=== PATIENT | male | born 1950 | race Caucasian/White ===

== ENCOUNTER 2016-08-10 12:57 | Outpatient (CLI) | END 2016-08-10 12:58 | disposition home or self-care (01) ==

== ENCOUNTER 2016-12-13 06:21 | Day surgery (SDC) | payer OTHER ==
[2016-12-13] MEDS ORDERED: ceFAZolin 2 GM/50 ML 50 ML IV ONE (06:27)
[2016-12-13] MEDS ORDERED: LACTATED RINGERS 1,000 ML IV ONE ×2 (06:37→10:00)
[2016-12-13] MEDS ORDERED: BUPIVACAINE 0.25% PF 30 ML VIAL SUBQ ONE ×2 (08:52)
[2016-12-13] MEDS ORDERED: ONDANSETRON 4 MG/2 ML VIAL IVP ONE (09:00)
[2016-12-13] MEDS ORDERED: DEXAMETHASONE 4 MG/ML VIAL IVP ONE (09:00)
[2016-12-13] MEDS ORDERED: MIDAZOLAM 2 MG/2 ML VIAL IVP ONE (09:00)
[2016-12-13] MEDS ORDERED: PROPOFOL 200 MG/20 ML VIAL IVP ONE (09:00)
[2016-12-13] MEDS ORDERED: KETOROLAC 30 MG/ML VIAL IVP ONE (09:00)
[2016-12-13] MEDS ORDERED: fentaNYL 100 MCG/2 ML VIAL IVP ONE (09:00)
[2016-12-13] MEDS ORDERED: SUCCINYLCHOLINE 200 MG/10 ML VIAL IVP ONE (09:00)
--- NOTE | 2016-12-13 09:57 | XRAY Report ---
INTRAOPERATIVE LEFT TOES: 12/13/2016 CLINICAL INDICATION: Fusion. FINDINGS: Frontal and lateral views of the left toes demonstrate K-wire fixation spanning the interp halangeal joints of the second and third toes. Seven seconds of fluoroscopy time was provided to Dr. Salas; 2 spot images obtained. IMPRESSION: DOCUMENTATION OF INTRAOPERATIVE IMAGING. JOB #: [id number] EXT JOB #:[id number]
[2016-12-13] MEDS ORDERED: ACETAMINOPHEN 1,000 MG/100 ML 100 ML IV ONE (10:21)
[2016-12-13 10:54] VITALS: BP 125/74
--- NOTE | 2016-12-13 12:22 | XRAY Report ---
C-ARM SERVICES: 12/13/2016 Fluoroscopy time only, no images submitted for interpretation. Fluoroscopy time 0 minutes, 7 seconds. MTDD
--- NOTE | 2017-02-10 01:44 | OPERATIVE REPORT ---
DATE OF SURGERY: 12/13/2016 00:00:00 PREOPERATIVE DIAGNOSIS: Hammertoes, left second and third digits. POSTOPERATIVE DIAGNOSIS: Hammertoes, left second and third digits. PROCEDURE: PIPJ arthroplasty with flexor tendon release of left second and third toe hammertoe deform ities with K-wire fixation. SURGEON: Usman Salas MD. ANESTHESIA: General endotracheal. ASSISTANTS: None. FINDINGS: Same. COMPLICATIONS: None. TOURNIQUET: Left thigh at 275 mmHg x57 minutes. ESTIMATED BLOOD LOSS: Minimal. SPECIMEN REMOVED AND CULTURES: None. CONDITION AT END OF PROCEDURE: Stable. DISPOSITION: PACU, then home. INDICATIONS: This is a 66-year-old male with a longstanding history of hammertoes to the left foot in volving his second and third toes. He knows of no previous injury. 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 We had performed an EMG and nerve conduction studies to look for possibility of tarsal tunnel syndrom e, but this was negative. After discussion with the patient, we elected to proceed with left second a nd third toe hammertoe releases. PROCEDURE IN DETAIL: After consent and identification, the patient was brought to the operating room on the operating litter. He was then transferred to the operating table. After induction of a general endotracheal anesthesia and appropriate monitoring, a tourniquet was placed to the left proximal thi gh. The left lower extremity was then prepped and draped free in the usual sterile fashion for foot s urgery. After an appropriate timeout was conducted, we elevated the left lower extremity to perform gravity e xsanguination. We inflated the tourniquet to 275 mmHg. We then made small stab incisions over the mid dle phalanx of the second and third toes in a transverse fashion with an 11-blade scalpel and release d the fundus flexor tendons. We then made longitudinal incisions over the second and third toes, exposing the proximal interphalan geal joints of both toes. We used a Rongeur to carefully resect the distal end of the proximal phalan x involving the articular surface, taking care to preserve the collateral ligaments on both the media l and lateral side of the digits. With this released, we placed a 0.62 inch K-wire in an antegrade di rection through the middle and distal phalanges, exiting underneath the toenail of the second and thi rd digits. The pins were pulled through until the proximal end was flushed with the proximal portion of the middle phalanx. We then placed the toes in a straight reduced position and advanced the pins a ntegrade into the proximal phalanx to the base of the proximal phalanx. With the toes in a straight p osition, we cut the ends of the K-wires and placed Jurgan's balls on the ends of the K-wires and tigh tened them with the Hex wrench. The wounds were irrigated with sterile saline and closed with a running interlocked 4-0 Nylon suture on the dorsum of both toes. The plantar surface incisions were closed with a single interrupted 4-0 N ylon suture. Xeroform gauze, fluff 4 x 4's, and a bulky foot dressing over-wrapped with an Yousif bandage were then a pplied to the left foot. On completion of the procedure, the tourniquet was deflated without complication. The patient was ext ubated and transferred to the recovery room in good condition, having tolerated the procedures well. JOB #: [id number] EXT JOB #:[id number]
== END 2016-12-13 06:22 | disposition home or self-care (01) ==
LOC: SDS 06:21
PROVIDERS: ATTEND Orthopaedic Surgery
PROC: 0L8W0ZZ Division of Left Foot Tendon, Open Approach (ICD-10-PCS; principal; 2016-12-13 07:30)
DX: M20.42 Other hammer toe(s) (acquired), left foot (principal); E78.5 Hyperlipidemia, unspecified; I10 Essential (primary) hypertension; M19.90 Unspecified osteoarthritis, unspecified site; Z79.82 Long term (current) use of aspirin; Z88.5 Allergy status to narcotic agent
CPT/HCPCS: 28285; 73660; C1713; J0131; J0690; J7120

== ENCOUNTER 2017-07-20 14:05 | Outpatient (CLI) | payer OTHER ==
[2017-07-20 14:17] LABS: ALBUMIN/GLOBULIN RATIO 1.6 (1.0-2.2); BILIRUBIN,TOTAL 1.4 mg/dL (0.2-1.0); BUN - BLOOD UREA NITROGEN 25 mg/dL (6-20); CALCIUM 9.3 mg/dL (8.5-10.3); CARBON DIOXIDE - CO2 27 mmol/L (21-32); CHLORIDE 103 mmol/L (101-111); CHOLESTEROL 238 mg/dL; CREATININE 1.1 mg/dL (0.6-1.2); GFR - MDRD 67 (>89); GLUCOSE 111 mg/dL (70-100); HDL CHOLESTEROL 34 mg/dL; LDL/HDL RATIO 5.2 (<3.6); POTASSIUM 4.1 mmol/L (3.5-5.0); SODIUM 137 mmol/L (135-145); TOTAL PROTEIN 7.2 g/dL (6.7-8.2); TRIGLYCERIDES 133 mg/dL; VLDL CHOLESTEROL 27 mg/dL
== END 2017-07-20 14:06 | disposition home or self-care (01) ==
LOC: LAB.WCP 14:05
PROVIDERS: ATTEND Family Medicine
DX: Z12.5 Encounter for screening for malignant neoplasm of prostate (principal); I10 Essential (primary) hypertension; E78.5 Hyperlipidemia, unspecified
CPT/HCPCS: 36415; 80053; 80061; 84153

== ENCOUNTER 2018-09-12 10:27 | Outpatient (CLI) | payer OTHER ==
[2018-09-12 19:03] LABS: BASOPHILS # (AUTO) 0.1 10^3/uL (0.0-0.1); BASOPHILS % (AUTO) 2.2 %; EOSINOPHILS # (AUTO) 0.2 10^3/uL (0.0-0.7); EOSINOPHILS % (AUTO) 4.7 %; HGB - HEMOGLOBIN 13.8 g/dL (14.0-18.0); LYMPHOCYTES # (AUTO) 1.1 10^3/uL (1.5-3.5); LYMPHOCYTES % (AUTO) 22.8 %; MEAN CORPUSCULAR HEMOGLOBIN 30.9 pg (27.0-31.0); MEAN CORPUSCULAR HGB CONC 33.9 g/dL (32.0-36.0); MEAN CORPUSCULAR VOLUME 91.2 fL (80.0-94.0); MEAN PLATELET VOLUME 8.6 fL (7.4-11.4); MONOCYTES # (AUTO) 0.5 10^3/uL (0.0-1.0); MONOCYTES % (AUTO) 9.4 %; NEUTROPHILS % (AUTO) 60.9 %; PLT - PLATELET COUNT 189 10^3/uL (130-450); RED BLOOD COUNT 4.47 10^6/uL (4.70-6.10); RED CELL DISTRIBUTION WIDTH 14.6 % (12.0-15.0)
[2018-09-12 19:19] LABS: ALBUMIN 4.5 g/dL (3.2-5.5); ALBUMIN/GLOBULIN RATIO 1.6 (1.0-2.2); ALKALINE PHOSPHATASE 58 IU/L (42-121); ALT ALANINE AMINOTRANSFERASE 24 IU/L (10-60); AST ASPARTATE AMINOTRANSFERASE 20 IU/L (10-42); BILIRUBIN,TOTAL 1.3 mg/dL (0.2-1.0); BUN - BLOOD UREA NITROGEN 17 mg/dL (6-20); CALCIUM 9.1 mg/dL (8.5-10.3); CARBON DIOXIDE - CO2 26 mmol/L (21-32); CHLORIDE 104 mmol/L (101-111); CHOL/HDL RATIO 7.5 (<5.0); CHOLESTEROL 239 mg/dL; GFR - MDRD 74 (>89); GLUCOSE 110 mg/dL (70-100); HDL CHOLESTEROL 32 mg/dL; LDL CHOLESTEROL,CALCULATED 186 mg/dL; LDL/HDL RATIO 5.8 (<3.6); SODIUM 137 mmol/L (135-145); TOTAL PROTEIN 7.3 g/dL (6.7-8.2); VLDL CHOLESTEROL 21 mg/dL
== END 2018-09-12 10:28 | disposition home or self-care (01) ==
LOC: LAB.WCP 10:27
PROVIDERS: ATTEND Family Medicine
DX: R73.01 Impaired fasting glucose (principal); I10 Essential (primary) hypertension; R97.20 Elevated prostate specific antigen [PSA]; E78.5 Hyperlipidemia, unspecified; Z12.5 Encounter for screening for malignant neoplasm of prostate
CPT/HCPCS: 36415; 80053; 80061; 83721; 84153; 85025

== ENCOUNTER 2020-07-07 08:00 | Outpatient (CLI) | payer MEDICARE, OTHER ==
[2020-07-07 18:06] LABS: BASOPHILS # (AUTO) 0.1 10^3/uL (0.0-0.1); EOSINOPHILS # (AUTO) 0.1 10^3/uL (0.0-0.7); EOSINOPHILS % (AUTO) 2.7 %; HGB - HEMOGLOBIN 13.7 g/dL (14.0-18.0); LYMPHOCYTES # (AUTO) 1.1 10^3/uL (1.5-3.5); LYMPHOCYTES % (AUTO) 21.3 %; MEAN CORPUSCULAR HEMOGLOBIN 31.1 pg (27.0-31.0); MEAN CORPUSCULAR HGB CONC 33.1 g/dL (32.0-36.0); MEAN CORPUSCULAR VOLUME 94.1 fL (80.0-94.0); MEAN PLATELET VOLUME 10.6 fL (7.4-11.4); MONOCYTES # (AUTO) 0.4 10^3/uL (0.0-1.0); MONOCYTES % (AUTO) 8.2 %; NEUTROPHILS # (AUTO) 3.4 10^3/uL (1.5-6.6); NEUTROPHILS % (AUTO) 66.6 %; PLT - PLATELET COUNT 199 10^3/uL (130-450); RED CELL DISTRIBUTION WIDTH 12.7 % (12.0-15.0); WHITE BLOOD COUNT 5.1 x10^3/uL (4.8-10.8)
[2020-07-07 19:16] LABS: ALBUMIN 4.2 g/dL (3.2-5.5); ALBUMIN/GLOBULIN RATIO 1.5 (1.0-2.2); ALKALINE PHOSPHATASE 57 IU/L (42-121); ALT ALANINE AMINOTRANSFERASE 33 IU/L (10-60); AST ASPARTATE AMINOTRANSFERASE 22 IU/L (10-42); BILIRUBIN,TOTAL 1.5 mg/dL (0.2-1.0); BUN - BLOOD UREA NITROGEN 25 mg/dL (6-20); CALCIUM 9.4 mg/dL (8.5-10.3); CARBON DIOXIDE - CO2 25 mmol/L (21-32); CHLORIDE 106 mmol/L (101-111); CHOL/HDL RATIO 5.4 (<5.0); CHOLESTEROL 177 mg/dL; CREATININE 0.9 mg/dL (0.6-1.2); GLUCOSE 107 mg/dL (70-100); HDL CHOLESTEROL 33 mg/dL; LDL CHOLESTEROL,CALCULATED 129 mg/dL; LDL/HDL RATIO 3.9 (<3.6); SODIUM 141 mmol/L (135-145); VLDL CHOLESTEROL 15 mg/dL
[2020-07-07 20:05] LABS: HEMOGLOBIN A1c% 5.9 % (4.27-6.07)
== END 2020-07-07 08:01 | disposition home or self-care (01) ==
LOC: LAB.WCP 08:00
PROVIDERS: ATTEND Internal Medicine
DX: E78.5 Hyperlipidemia, unspecified (principal); R73.01 Impaired fasting glucose; Z12.5 Encounter for screening for malignant neoplasm of prostate; Z13.29 Encounter for screening for other suspected endocrine disorder; D48.5 Neoplasm of uncertain behavior of skin
CPT/HCPCS: 36415; 80053; 80061; 83036; 84443; 85025; G0103; 83721; 84153

== ENCOUNTER 2021-07-15 07:53 | Outpatient (CLI) | payer MEDICARE ==
[2021-07-15 08:36] LABS: ALBUMIN 4.2 g/dL (3.2-5.5); ALBUMIN/GLOBULIN RATIO 1.5 (1.0-2.2); ALKALINE PHOSPHATASE 66 IU/L (42-121); ALT ALANINE AMINOTRANSFERASE 33 IU/L (10-60); AST ASPARTATE AMINOTRANSFERASE 23 IU/L (10-42); BASOPHILS # (AUTO) 0.1 10^3/uL (0.0-0.1); BILIRUBIN,TOTAL 1.6 mg/dL (0.2-1.0); BUN - BLOOD UREA NITROGEN 23 mg/dL (6-20); CALCIUM 9.1 mg/dL (8.5-10.3); CARBON DIOXIDE - CO2 27 mmol/L (21-32); CHLORIDE 102 mmol/L (101-111); CHOL/HDL RATIO 5.4 (<5.0); CHOLESTEROL 172 mg/dL; EOSINOPHILS # (AUTO) 0.3 10^3/uL (0.0-0.7); EOSINOPHILS % (AUTO) 5.8 %; GFR - MDRD 73 (>89); GLUCOSE 119 mg/dL (70-100); HCT - HEMATOCRIT 39.7 % (42.0-52.0); HDL CHOLESTEROL 32 mg/dL; HGB - HEMOGLOBIN 13.5 g/dL (14.0-18.0); LDL CHOLESTEROL,CALCULATED 123 mg/dL; LDL/HDL RATIO 3.8 (<3.6); LYMPHOCYTES # (AUTO) 1.5 10^3/uL (1.5-3.5); LYMPHOCYTES % (AUTO) 29.1 %; MEAN CORPUSCULAR HEMOGLOBIN 31.5 pg (27.0-31.0); MEAN CORPUSCULAR VOLUME 92.8 fL (80.0-94.0); MEAN PLATELET VOLUME 9.8 fL (7.4-11.4); MONOCYTES # (AUTO) 0.6 10^3/uL (0.0-1.0); MONOCYTES % (AUTO) 11.2 %; NEUTROPHILS # (AUTO) 2.6 10^3/uL (1.5-6.6); NEUTROPHILS % (AUTO) 52.7 %; PLT - PLATELET COUNT 165 10^3/uL (130-450); POTASSIUM 3.8 mmol/L (3.5-5.0); RED BLOOD COUNT 4.28 10^6/uL (4.70-6.10); RED CELL DISTRIBUTION WIDTH 12.7 % (12.0-15.0); SODIUM 138 mmol/L (135-145); TRIGLYCERIDES 85 mg/dL; VLDL CHOLESTEROL 17 mg/dL
[2021-07-15 10:00] LABS: CREATININE,URINE 153.2 mg/dL; MICROALBUM/CREATININE RATIO,UR 6.5 ug/mg (<30.0)
[2021-07-15 12:52] LABS: ESTIMATED AVERAGE GLUCOSE 123 mg/dL (70-100); HEMOGLOBIN A1c% 5.9 % (4.27-6.07)
== END 2021-07-15 07:54 | disposition home or self-care (01) ==
LOC: LAB 07:53
PROVIDERS: ATTEND Internal Medicine
DX: I10 Essential (primary) hypertension (principal); E78.5 Hyperlipidemia, unspecified; R73.01 Impaired fasting glucose; Z12.5 Encounter for screening for malignant neoplasm of prostate
CPT/HCPCS: 36415; 80053; 80061; 82043; 82570; 83036; 83721; 84153; 85025

== ENCOUNTER 2021-07-24 09:37 | Outpatient (CLI) | payer MEDICARE ==
--- NOTE | 2021-07-24 12:07 | XRAY Report ---
PROCEDURE: Chest 2 View X-Ray INDICATIONS: CHEST DISCOMFORT TECHNIQUE: 2 view(s) of the chest. COMPARISON: None. FINDINGS: Surgical changes and devices: None. Lungs and pleura: No pleural effusions or pneumothorax. Oval radiopacity in right upper lung field i s seen and measures approximately 1.8 cm in size. This was not noted on lateral view. No focal infilt rate is seen. Mediastinum: Mildly tortuous thoracic aorta is seen with aortic arch calcifications. Heart size is no rmal. Bones and chest wall: No suspicious bony abnormalities. Soft tissues appear unremarkable. IMPRESSION: 1. No acute cardiopulmonary pathology. 2. Oval opacity in right upper lung field which may represent summation artifact. A pulmonary nodule cannot be entirely excluded. Consider CT of chest for further evaluation. Reviewed by: Bobby Walsh MD on 07/24/2021 12:05 PM [facility] Approved by: Bobby Walsh MD on 07/24/2021 12:05 PM [facility] Station ID: [id number]
== END 2021-07-24 09:38 | disposition home or self-care (01) ==
LOC: DI 09:37
PROVIDERS: ATTEND Internal Medicine
DX: R07.89 Other chest pain (principal)

== ENCOUNTER 2021-08-27 07:03 | Outpatient (CLI) | payer MEDICARE ==
--- NOTE | 2021-08-27 15:36 | CT Report ---
PROCEDURE: CHEST WO INDICATIONS: PULMONARY NODULE RUL TECHNIQUE: Noncontrast 1mm axial images were acquired from the pulmonary apices to the posterior costophrenic an gles. Axial 5 mm soft tissue kernel reconstructions were performed as well as 8 mm axial MIP and cor onal and sagittal 5 mm reformations. For radiation dose reduction, the following was used: automate d exposure control, adjustment of mA and/or kV according to patient size. COMPARISON: X-ray chest 07/24/2021. FINDINGS: Image quality: Excellent. Lungs and pleura: No acute air space opacities. No pleural effusions or pneumothorax. Central and peripheral airways are patent and normal in caliber. Mediastinum: Heart size is mildly prominent. No pericardial effusion. No mediastinal adenopathy by size criteria. Thoracic aorta and central pulmonary arteries are normal in size. Esophagus is roland l in caliber. Mild hiatal hernia. Bones and chest wall: No suspicious bony lesions. No vertebral body compression fractures. No axil jey or supraclavicular adenopathy by size criteria. The thyroid is normal in size and there are no incidental findings. Abdomen: Stones are present within the dependent gallbladder without wall thickening. Visualized upp er abdominal solid organs and bowel loops appear normal in the absence of contrast. IMPRESSION: 1. No mass lesion within the right upper lobe corresponding to x-ray abnormality. Appearance is possi junaid secondary to overlapping osseous structures. CLINICAL RECOMMENDATION STATEMENTS: In patients <35 years with an ITN detected on CT, MRI, or extrathyroidal ultrasound, the Committee re commends further evaluation with dedicated thyroid ultrasound if the nodule is "e1 cm and has no susp icious imaging features, and if the patient has normal life expectancy. In patients "e35 years with an ITN detected on CT, MRI, or extrathyroidal ultrasound, the Committee r ecommends further evaluation with dedicated thyroid ultrasound if the nodule is "e1.5 cm and has no s uspicious imaging features, and if the patient has normal life expectancy. (ACR, 2014) Reviewed by: Emily Navarrete MD on 08/27/2021 3:35 PM PST Approved by: Emily Navarrete MD on 08/27/2021 3:35 PM PST Station ID: [id number]
== END 2021-08-27 07:04 | disposition home or self-care (01) ==
LOC: DI 07:03
PROVIDERS: ATTEND Internal Medicine
DX: R91.1 Solitary pulmonary nodule (principal)

== ENCOUNTER 2021-10-01 10:43 | Outpatient (CLI) | payer MEDICARE ==
--- NOTE | 2021-10-01 18:46 | CARDIAC PROCEDURE NOTE ---
Stress Test Report Service Date: 10/01/21 Ordering Provider: Dr Andry Betancur Indication for Test: Atypical chest pain Cardiac Risk Factors: Male gender, HTN, Hyperlipidemia, Family Hx of heart disease. Type of Stress Test: ETT with Myocardial Perfusion Imaging Procedure: After signing informed consent, the patient underwent a Liu-protocol treadmill stress test with nuclear myocardial perfusion imaging. Resting heart rate: 65 Peak heart rate: 129 (87% predicted maximum heart rate for age) Resting BP: 141/83 Peak BP: 192/90 The patient exercised for 5 minutes and 36 seconds on a Liu-protocol treadmill stress test. He achieved a peak heart rate of 129 (87% p.m. HR) and 7.05 METS. The patient had no chest pain. He had mild to moderate shortness of breath and rated his perceived exertion at 13/20 on the Karina scale at peak. Oxygen saturation was greater than 90% throughout the test during exercise on room air. Resting EKG: NSR alternating with long runs of ectopic atrial rhythm, rate 65-7 0, left atrial enlargement, Right IVCD, early R/S transition, early repolarization. EKG with exercise: He remained in sinus rhythm throughout the duration of his exercise. EKG at peak: Sinus rhythm, U waves are seen, no ischemic ST segment or T wave changes develop. Nuclear imaging was reported separately. Summary: 1) Abnormal resting cardiac rhythm (ectopic atrial rhythm alternates with normal sinus rhythm). 2) No ischemic changes develop on EKG during exercise up to 7 METS on a Liu protocol stress test. 3) Nuclear images were reported separately and showed: A fixed perfusion defect in the anterior septum that resolves on prone imaging, therefore likely artifact. Normal distribution of activity in the LV and RV myocardium with no reversible perfusion defects. Conclusion: 1) Abnormal resting EKG (consider Cor Pulmonale) and abnormal resting heart rhythm 2) No evidence of cardiac ischemia by EKG criteria or nuclear imaging 3) This patient's cardiac risk: Low
--- NOTE | 2021-10-02 10:57 | Nuclear Medicine Report ---
PROCEDURE: Rest and exercise myocardial perfusion SPECT with gated imaging and ejection fraction INDICATIONS: ATYPICAL CHEST DISCOMFORT/ TREADMILL RADIOPHARMACEUTICAL: 12.9 mCi Tc-99m Myoview IV at rest and 38.3 mCi Tc-99m Myoview IV at peak exerc ise. [id number] was performed. TECHNIQUE: Radiopharmaceutical was injected at peak stress test, and also at rest. SPECT images wer e obtained. SPECT myocardial perfusion images were displayed in short axis, horizontal long axis, an d vertical long axis views. Gated images were reviewed using AutoQUANT software. COMPARISON: None available. FINDINGS: Raw data: There is good myocardial labeling by radiotracer. No significant motion artifacts. Lung- to-heart ratio is 0.27 (normal is less than 0.46 for tetrafosmin tracer). Left ventricle function: Gated images demonstrate normal left ventricle wall thickening. No segment al wall motion abnormality. No transient ischemic dilation; TID is 0.88 (normal less than 1.30). Th e left ventricle resting end-diastolic volume is 101 mL. Left ventricle stress ejection fraction is 71%; normal values are above 45%. Myocardial perfusion: There is a small, moderately severe, fixed perfusion defect in the anterior se ptum, which is resolved on prone imaging, likely caused by attenuation artifact. There is otherwise n ormal distribution of activity in the left and right ventricular myocardium. No reversible perfusion defects. IMPRESSION: 1. Probably normal myocardial perfusion images. A small, moderately severe, fixed defect in the anter ior septum is resolved on prone imaging, suggesting attenuation artifact. 2. No reversible perfusion defect to suggest myocardial ischemia. 3. Normal left ventricular volume and systolic function. 4. Please correlate with stress EKG result. PQRS ATTESTATIONS: Measure 322 - Is this imaging test primarily performed on a low-risk surgery patient for preoperative evaluation within 30 days preceding their low-risk non-cardiac surgery? Low-risk surgery is defined as cardiac or myocardial infarction less than 1%, including (but not limited to) endoscopic pr ocedures, superficial procedures, cataract surgery, and excisional breast surgery: Answer: No Measure 323 - Is this imaging test performed primarily for the monitoring of an asymptomatic patient who had percutaneous coronary intervention on the visit date or within 2 years of the visit date? An swer: No Measure 324 - Is this imaging test performed primarily for the initial detection and risk assessment on an asymptomatic, low coronary heart disease patient? Low CHD risk definition = clinicians should consider the maximum number of available patient factors used to estimate risk based on [place] (A TP III criteria), typically age, gender, diabetes, smoking status, and use of blood pressure medicati on, and integrate age appropriate estimates for missing elements, such as LDL or standard blood press ure. Answer: No Reviewed by: Acosta Lane MD on 10/02/2021 10:55 AM PST Approved by: Acosta Lane MD on 10/02/2021 10:55 AM PST Station ID: [id number]
== END 2021-10-01 10:44 | disposition home or self-care (01) ==
LOC: DI 10:43
PROVIDERS: ATTEND Internal Medicine
DX: R07.89 Other chest pain (principal); R94.31 Abnormal electrocardiogram [ECG] [EKG]
CPT/HCPCS: 78452; 93016; 93017; 93018; A9500

== ENCOUNTER 2021-11-02 08:08 | Outpatient (CLI) | payer MEDICARE ==
[2021-11-02 09:00] LABS: ALBUMIN/GLOBULIN RATIO 1.4 (1.0-2.2); ALKALINE PHOSPHATASE 72 IU/L (42-121); ALT ALANINE AMINOTRANSFERASE 40 IU/L (10-60); AST ASPARTATE AMINOTRANSFERASE 23 IU/L (10-42); BILIRUBIN,TOTAL 1.4 mg/dL (0.2-1.0); BUN - BLOOD UREA NITROGEN 21 mg/dL (6-20); CALCIUM 9.2 mg/dL (8.5-10.3); CARBON DIOXIDE - CO2 27 mmol/L (21-32); CHLORIDE 104 mmol/L (101-111); CHOL/HDL RATIO 4.8 (<5.0); CHOLESTEROL 135 mg/dL; GFR - MDRD 73 (>89); GLUCOSE 107 mg/dL (70-100); HDL CHOLESTEROL 28 mg/dL; LDL CHOLESTEROL,CALCULATED 86 mg/dL; LDL/HDL RATIO 3.1 (<3.6); POTASSIUM 4.1 mmol/L (3.5-5.0); SODIUM 140 mmol/L (135-145); TOTAL PROTEIN 6.8 g/dL (6.7-8.2); TRIGLYCERIDES 104 mg/dL; VLDL CHOLESTEROL 21 mg/dL
== END 2021-11-02 08:09 | disposition home or self-care (01) ==
LOC: LAB 08:08
PROVIDERS: ATTEND Internal Medicine
DX: E78.5 Hyperlipidemia, unspecified (principal)
CPT/HCPCS: 36415; 80053; 80061; 83721

== ENCOUNTER 2023-02-07 08:44 | Outpatient (CLI) | payer MEDICARE ==
--- NOTE | 2023-02-07 11:19 | XRAY Report ---
PROCEDURE: Knee 2 View RT INDICATIONS: DJD,KNEE,RIGHT TECHNIQUE: 2 views of the right knee(s) were acquired. COMPARISON: None. FINDINGS: Bones: No fractures or dislocations. No definite or significant medial or lateral compartment joint space narrowing. Patellofemoral compartment is not well assessed on included views. Soft tissues: No knee joint effusion. Pronounced prepatellar soft tissue swelling present. Vascular calcifications are present. IMPRESSION: No acute bony abnormality. If there remains a high clinical concern for fracture, consider cross-sect ional imaging now. If pain persists, consider repeat x-ray in 10-14 days or cross-sectional imaging. Pronounced nonspecific prepatellar soft tissue swelling. Reviewed by: Cj Lam MD on 02/07/2023 11:17 AM PDT Approved by: Cj Lam MD on 02/07/2023 11:17 AM PDT Station ID: [id number]
== END 2023-02-07 08:45 | disposition home or self-care (01) ==
LOC: DI 08:44
PROVIDERS: ATTEND Internal Medicine
DX: M17.11 Unilateral primary osteoarthritis, right knee (principal)

== ENCOUNTER 2023-02-28 08:00 | Outpatient (CLI) | payer MEDICARE ==
--- NOTE | 2023-02-28 13:50 | XRAY Report ---
PROCEDURE: Knee 4 View RT INDICATIONS: RIGHT KNEE PAIN TECHNIQUE: 4 views of the right knee(s) were acquired. COMPARISON: None. FINDINGS: Bones: No fractures or dislocations. No suspicious bony lesions. Soft tissues: No knee joint effusion. Prepatellar soft tissue thickening is seen. Please correlate w ith suspicious soft tissue calcifications or masses. Vascular calcifications bilaterally. IMPRESSION: Prepatellar soft tissue thickening consistent with prepatellar bursitis Reviewed by: Adi Cuellar on 02/28/2023 1:48 PM PDT Approved by: Adi Cuellar on 02/28/2023 1:48 PM PDT Station ID: [id number]
== END 2023-02-28 23:59 | disposition home or self-care (01) ==
LOC: DI.WOS 08:00
PROVIDERS: ATTEND Physician Assistant Surgical
DX: M17.11 Unilateral primary osteoarthritis, right knee (principal)

== ENCOUNTER 2023-03-21 08:00 | Outpatient (CLI) | payer MEDICARE ==
[2023-03-21 08:16] LABS: BASOPHILS # (AUTO) 0.1 10^3/uL (0.0-0.1); BASOPHILS % (AUTO) 0.9 %; EOSINOPHILS # (AUTO) 0.3 10^3/uL (0.0-0.7); EOSINOPHILS % (AUTO) 4.8 %; HCT - HEMATOCRIT 39.4 % (42.0-52.0); HGB - HEMOGLOBIN 13.2 g/dL (14.0-18.0); LYMPHOCYTES # (AUTO) 1.4 10^3/uL (1.5-3.5); LYMPHOCYTES % (AUTO) 26.3 %; MEAN CORPUSCULAR HEMOGLOBIN 31.4 pg (27.0-31.0); MEAN CORPUSCULAR HGB CONC 33.5 g/dL (32.0-36.0); MEAN CORPUSCULAR VOLUME 93.8 fL (80.0-94.0); MEAN PLATELET VOLUME 9.7 fL (7.4-11.4); MONOCYTES # (AUTO) 0.5 10^3/uL (0.0-1.0); MONOCYTES % (AUTO) 9.1 %; NEUTROPHILS # (AUTO) 3.2 10^3/uL (1.5-6.6); NEUTROPHILS % (AUTO) 58.5 %; PLT - PLATELET COUNT 158 10^3/uL (130-450); RED CELL DISTRIBUTION WIDTH 12.8 % (12.0-15.0); WHITE BLOOD COUNT 5.4 x10^3/uL (4.8-10.8)
[2023-03-21 08:38] LABS: CREATININE,URINE 126.1 mg/dL; MICROALBUM/CREATININE RATIO,UR 8.7 ug/mg (<30.0); MICROALBUMIN,URINE 1.1 mg/dL
[2023-03-21 08:39] LABS: ALBUMIN 4.3 g/dL (3.2-5.5); ALBUMIN/GLOBULIN RATIO 1.7 (1.0-2.2); ALKALINE PHOSPHATASE 72 IU/L (42-121); ALT ALANINE AMINOTRANSFERASE 23 IU/L (10-60); AST ASPARTATE AMINOTRANSFERASE 18 IU/L (10-42); BILIRUBIN,TOTAL 1.2 mg/dL (0.2-1.0); BUN - BLOOD UREA NITROGEN 21 mg/dL (6-20); CALCIUM 9.3 mg/dL (8.5-10.3); CARBON DIOXIDE - CO2 30 mmol/L (21-32); CHLORIDE 108 mmol/L (101-111); CHOL/HDL RATIO 3.6 (<5.0); CHOLESTEROL 122 mg/dL; CREATININE 0.9 mg/dL (0.6-1.3); GFR - MDRD 82 (>89); GLUCOSE 114 mg/dL (74-104); HDL CHOLESTEROL 34 mg/dL; LDL CHOLESTEROL,CALCULATED 74 mg/dL; LDL/HDL RATIO 2.2 (<3.6); POTASSIUM 4.1 mmol/L (3.5-4.5); SODIUM 140 mmol/L (135-145); TOTAL PROTEIN 6.8 g/dL (6.4-8.9); TRIGLYCERIDES 70 mg/dL (48-352); VLDL CHOLESTEROL 14 mg/dL
[2023-03-21 10:39] LABS: ESTIMATED AVERAGE GLUCOSE 120 mg/dL (70-100); HEMOGLOBIN A1c% 5.8 % (4.27-6.07)
== END 2023-03-21 08:01 | disposition home or self-care (01) ==
LOC: LAB 08:00
PROVIDERS: ATTEND Internal Medicine
DX: E78.5 Hyperlipidemia, unspecified (principal); R73.01 Impaired fasting glucose; Z12.5 Encounter for screening for malignant neoplasm of prostate; I10 Essential (primary) hypertension
CPT/HCPCS: 36415; 80053; 80061; 82043; 82570; 83036; 85025; G0103; 83721; 84153

== ENCOUNTER 2023-09-19 07:36 | Outpatient (CLI) | payer MEDICARE ==
[2023-09-19 08:04] LABS: CALCIUM 9.2 mg/dL (8.5-10.3); CREATININE 1.1 mg/dL (0.6-1.3); POTASSIUM 3.8 mmol/L (3.5-4.5)
[2023-09-19 14:10] LABS: ESTIMATED AVERAGE GLUCOSE 123 mg/dL (70-100); HEMOGLOBIN A1c% 5.9 % (4.27-6.07)
== END 2023-09-19 07:37 | disposition home or self-care (01) ==
LOC: LAB 07:36
PROVIDERS: ATTEND Internal Medicine
DX: I10 Essential (primary) hypertension (principal); R73.01 Impaired fasting glucose
CPT/HCPCS: 36415; 80048; 83036

== ENCOUNTER 2024-02-06 07:42 | Outpatient (CLI) | payer MEDICARE ==
[2024-02-06 07:56] LABS: BASOPHILS # (AUTO) 0.1 10^3/uL (0.0-0.1); BASOPHILS % (AUTO) 0.9 %; EOSINOPHILS # (AUTO) 0.3 10^3/uL (0.0-0.7); EOSINOPHILS % (AUTO) 4.9 %; HCT - HEMATOCRIT 38.9 % (42.0-52.0); HGB - HEMOGLOBIN 12.8 g/dL (14.0-18.0); LYMPHOCYTES # (AUTO) 1.5 10^3/uL (1.5-3.5); LYMPHOCYTES % (AUTO) 27.4 %; MEAN CORPUSCULAR HEMOGLOBIN 31.1 pg (27.0-31.0); MEAN CORPUSCULAR HGB CONC 32.9 g/dL (32.0-36.0); MEAN CORPUSCULAR VOLUME 94.4 fL (80.0-94.0); MEAN PLATELET VOLUME 9.7 fL (7.4-11.4); MONOCYTES # (AUTO) 0.6 10^3/uL (0.0-1.0); MONOCYTES % (AUTO) 11.2 %; NEUTROPHILS # (AUTO) 3.1 10^3/uL (1.5-6.6); NEUTROPHILS % (AUTO) 55.4 %; PLT - PLATELET COUNT 187 10^3/uL (130-450); RED BLOOD COUNT 4.12 10^6/uL (4.70-6.10); RED CELL DISTRIBUTION WIDTH 13.2 % (12.0-15.0); WHITE BLOOD COUNT 5.5 x10^3/uL (4.8-10.8)
[2024-02-06 08:14] LABS: ALBUMIN 4.5 g/dL (3.2-5.5); ALBUMIN/GLOBULIN RATIO 1.7 (1.0-2.2); ALKALINE PHOSPHATASE 68 IU/L (42-121); ALT ALANINE AMINOTRANSFERASE 23 IU/L (10-60); AST ASPARTATE AMINOTRANSFERASE 19 IU/L (10-42); BILIRUBIN,TOTAL 1.4 mg/dL (0.2-1.0); BUN - BLOOD UREA NITROGEN 22 mg/dL (6-20); CALCIUM 9.9 mg/dL (8.5-10.3); CARBON DIOXIDE - CO2 32 mmol/L (21-32); CHLORIDE 103 mmol/L (101-111); CHOL/HDL RATIO 3.3 (<5.0); CHOLESTEROL 127 mg/dL; GFR - MDRD 73 (>89); GLUCOSE 130 mg/dL (74-104); HDL CHOLESTEROL 38 mg/dL; LDL CHOLESTEROL,CALCULATED 71 mg/dL; LDL/HDL RATIO 1.9 (<3.6); POTASSIUM 3.8 mmol/L (3.5-4.5); SODIUM 139 mmol/L (135-145); TOTAL PROTEIN 7.1 g/dL (6.4-8.9); TRIGLYCERIDES 89 mg/dL (48-352); VLDL CHOLESTEROL 18 mg/dL
[2024-02-06 08:16] LABS: MICROALBUM/CREATININE RATIO,UR 4.6 ug/mg (<30.0); MICROALBUMIN,URINE 0.8 mg/dL
[2024-02-06 12:57] LABS: ESTIMATED AVERAGE GLUCOSE 123 mg/dL (70-100); HEMOGLOBIN A1c% 5.9 % (4.27-6.07)
== END 2024-02-06 07:43 | disposition home or self-care (01) ==
LOC: LAB 07:42
PROVIDERS: ATTEND Internal Medicine
DX: I10 Essential (primary) hypertension (principal); E78.5 Hyperlipidemia, unspecified; R73.01 Impaired fasting glucose; Z12.5 Encounter for screening for malignant neoplasm of prostate
CPT/HCPCS: 36415; 80053; 80061; 82043; 82570; 83036; 85025; G0103; 83721; 84153